=== PATIENT | female | born 1950 | race Caucasian/White ===

== ENCOUNTER 2019-03-23 10:09 | Outpatient (CLI) | payer MEDICARE, SELFPAY ==
[2019-03-23 12:12] LABS: Albumin Level 4.3 g/dL (3.5-5.1); Estimated Glomerular Filt Rate > 60; Glucose 104 mg/dL (65-105)
[2019-03-23 12:13] LABS: Urine Cotinine NEGATIVE
[2019-03-23 12:18] LABS: Basophils Absolute Auto 0.1 K/mm3 (0.0-0.1); Basophils Percent Auto 1.3 % (0.2-1.2); Eosinophils Absolute Auto 0.2 K/mm3 (0-0.3); Eosinophils Percent Auto 2.4 % (0-4.4); Hematocrit 41.9 % (37.0-47.0); Hemoglobin 13.4 g/dL (12.0-15.0); Immature Granulocyte Absolute 0.03 K/mm3 (0.00-0.031); Immature Granulocyte Percent A 0.4 % (0-0.5); Lymphocytes Percent Auto 39.8 % (18.3-44.2); Mean Corpuscular Hemoglobin 28.6 pg (26-34); Mean Corpuscular Volume 89.5 fl (80-100); Mean Platelet Volume 9.7 fl (7.4-10.4); Monocytes Absolute Auto 0.5 K/mm3 (0.1-0.6); Monocytes Percent Auto 6.2 % (2.6-8.5); Neutrophils Absolute Auto 3.9 K/mm3 (1.3-6.7); Neutrophils Percent Auto 49.9 % (45.5-73.1); Platelet Count Result 313 k/mm3 (150-375); Red Blood Count 4.68 M/mm3 (4.2-5.4); Red Cell Distribution Width 13.1 % (11.5-14.5); White Blood Count 7.8 K/mm3 (4.5-10.0)
[2019-03-23 12:26] LABS: Hemoglobin A1C 5.9 % (<5.7)
== END 2019-03-23 10:10 | disposition home or self-care (01) ==
PROVIDERS: PCP Nurse Practitioner Family; Visit Provider Orthopaedic Surgery
DX: M17.12 Unilateral primary osteoarthritis, left knee (principal)
CPT/HCPCS: 36415; 80307; 82040; 82565; 82947; 83036; 85025; 86850; 86900; 86901; 87081

== ENCOUNTER 2019-07-31 07:49 | Outpatient (CLI) | payer MEDICARE, SELFPAY ==
[2019-07-31 09:17] LABS: Basophils Absolute Auto 0.1 K/mm3 (0.0-0.1); Eosinophils Absolute Auto 0.2 K/mm3 (0-0.3); Eosinophils Percent Auto 2.8 % (0-4.4); Hematocrit 41.9 % (37.0-47.0); Hemoglobin 13.8 g/dL (12.0-15.0); Immature Granulocyte Absolute 0.04 K/mm3 (0.00-0.031); Immature Granulocyte Percent A 0.5 % (0-0.5); Lymphocytes Absolute Auto 3.34 K/mm3 (0.9-3.2); Lymphocytes Percent Auto 41.3 % (18.3-44.2); Mean Corpuscular HGB Conc 32.9 g/dl (32-36); Mean Corpuscular Hemoglobin 28.8 pg (26-34); Mean Corpuscular Volume 87.5 fl (80-100); Mean Platelet Volume 9.4 fl (7.4-10.4); Monocytes Absolute Auto 0.5 K/mm3 (0.1-0.6); Monocytes Percent Auto 6.1 % (2.6-8.5); Neutrophils Absolute Auto 3.9 K/mm3 (1.3-6.7); Neutrophils Percent Auto 48.3 % (45.5-73.1); Platelet Count Result 283 k/mm3 (150-375); Red Blood Count 4.79 M/mm3 (4.2-5.4); Red Cell Distribution Width 13.2 % (11.5-14.5); White Blood Count 8.1 K/mm3 (4.5-10.0)
[2019-07-31 09:18] LABS: Urine Cotinine NEGATIVE
[2019-07-31 09:20] LABS: Hemoglobin A1C 6.1 % (<5.7)
[2019-07-31 09:24] LABS: Albumin Level 4.2 g/dL (3.5-5.1); Estimated Glomerular Filt Rate > 60; Glucose 112 mg/dL (65-105)
== END 2019-07-31 07:50 | disposition home or self-care (01) ==
PROVIDERS: PCP Nurse Practitioner Family; Visit Provider Orthopaedic Surgery
DX: Z01.818 Encounter for other preprocedural examination (principal); M17.12 Unilateral primary osteoarthritis, left knee
CPT/HCPCS: 36415; 80307; 82040; 82565; 82947; 83036; 85025; 87081

== ENCOUNTER 2019-08-10 00:19 | Outpatient (CLI) | payer MEDICARE, SELFPAY ==
[2019-08-11 00:19] LABS: SARS-CoV-2 RNA PCR Negative
== END 2019-08-10 00:20 | disposition home or self-care (01) ==
LOC: ANHCOVIDDT 00:19
PROVIDERS: Visit Provider Orthopaedic Surgery
DX: Z01.818 Encounter for other preprocedural examination (principal); Z11.59 Encounter for screening for other viral diseases
CPT/HCPCS: 87635; C9803; U0003

== ENCOUNTER 2019-08-13 01:42 | Day surgery (SDC) | payer MEDICARE, MEDICAID, SELFPAY ==
[2019-07-31 08:12] VITALS: BP 136/74; PULSE 74; RESP 20; TEMP 36.6; O2SAT 98; BMI 36.1
[2019-08-13] VITALS (15 sets, daily range): BP systolic 104–143; BP diastolic 54–85; PULSE 66–79; RESP 14–20; TEMP 35.9–37.1; O2SAT 94–98
--- NOTE | ~2019-08-13 | XR_ITS ---
EXAMINATION: XR knee LT 2V DATE: 08/13/2019 14:46 INDICATION: Total left knee arthroplasty. Postop. TECHNIQUE: 2 views of left knee were obtained. COMPARISON: Left knee radiographs 02/22/2019 FINDINGS: There is a total left knee arthroplasty with patellar resurfacing in near-anatomic alignmen t. No fracture. There is gas in the knee joint and soft tissues, consistent with recent surgery. IMPRESSION: 1. Total left knee arthroplasty in near-anatomic alignment. Reviewed, dictated and finalized at location A.
[2019-08-13] MEDS: LACTATED RINGERS 1,000 ML 30 ML IV CONT ×3 (09:20→13:46)
--- NOTE | 2019-08-13 09:24 | WPDANESEPPF ---
Anes - Initial Pre Proc Eval Procedure: Operation Date: 08/13/19 10:30 Proposed Procedures p Left Total Knee Arthroplasty - Bronson Garcia MD Date/Time: 08/13/19 09:24 Surgeon: Bronson Garcia MD Pre Op Diagnosis: Left Knee OA Patient Data Age: 69 Gender: F Height: 5 ft 2 in Weight: 90.1 kg Last Vital Signs Temp 36.6 C 07/31/19 08:12 Pulse 74 07/31/19 08:12 Resp 20 07/31/19 08:12 BP 136/74 07/31/19 08:12 Pulse Ox 98 07/31/19 08:12 Allergies Allergy/AdvReac Type Severity Reaction Status Date / Time sertraline Allergy Severe PARANOID Verified 08/13/19 08:45 Home Medications Medication Instructions Recorded Confirmed Type buspirone 30 mg tablet 30 mg PO BID 02/16/19 08/13/19 History carvedilol 12.5 mg tablet 6.25 mg PO Q12H 02/16/19 08/13/19 History duloxetine 60 mg capsule,delayed 60 mg PO HS 02/16/19 08/13/19 History release lactobacillus combination no.4 3 3,000 mmu cells PO DAILY 02/16/19 08/13/19 History billion cell capsule cholecalciferol (vitamin D3) 25 5,000 unit PO DAILY 02/22/19 08/13/19 History mcg (1,000 unit) capsule multivitamin 1 tablet PO DAILY 02/22/19 08/13/19 History atorvastatin 10 mg tablet 10 mg PO HS 03/20/19 08/13/19 History apixaban 5 mg tablet 5 mg PO BID 03/21/19 08/13/19 History calcium-vitamin D3-vitamin K 1 tablet PO DAILY 03/23/19 08/13/19 History [Viactiv] loratadine [Claritin] 10 mg PO DAILY PRN 03/23/19 08/13/19 History Patient hx anesthesia problems: none Family hx anesthesia problems: none PMFSH Past Medical History Medical History Anxiety Cardiac arrhythmia Depression Herniated disc Surgical History Surgical History Colon polyps polyps removed History of hand surgery finger nerve reattached History of knee replacement 2016 Right side History of prior ablation treatment Family History Family History Grandparent Diabetes mellitus Cerebrovascular accident Sibling Cancer Father Emphysema, unspecified Social History Social History Smoking status: Never smoker Alcohol intake: current Additional living arrangements comments: Daughter-Jennifer Ortega Final PreProcedure Day of Procedure 08/13/19 09:24 Patient weight: obese Heart: regular rate and rhythm Lungs: clear to auscultation Airway: Mallampati scale class II Neurological: alert and oriented Last oral intake: >/= 8 hours ASA classification: III Emergent: no Anesthetic plan: proceed Anesthesia type and monitoring: general LMA and standard monitoring Informed Consent: The patient's anesthetic plan and its attendant risks and benefits were discussed with the patient/family/POA. Questions were solicited and answers provided to the satisfaction of the patient/family/POA.
[2019-08-13] MEDS: TRANEXAMIC ACID 1,000MG/ISO100 1,000 MG/100 ML BAG 200 MG IVPB (09:30)
--- NOTE | 2019-08-13 09:53 | WPDHPUPDATE1 ---
History and Physical Update Update Date/Time: 08/13/19 09:53 History and Physical has been reviewed, including an updated exam of the patient. There are NO changes in the patient's condition. Risks, benefits, and alternatives have been discussed and questions answered. Patient agrees to proceed with procedure.
--- NOTE | 2019-08-13 10:28 | SUR.PREOP ---
[id number] WITH DAUGHTER, RAFI, WITH UPDATE TO OR.
[2019-08-13] MEDS: ceFAZolin 2 GM/D5W 50 ML 2 GM/50 ML BAG IVPB (10:40)
[2019-08-13] MEDS: TRANEXAMIC ACID 1,000 MG/10 ML AMPUL 1000 MG TOPICAL (11:12)
[2019-08-13] MEDS: GENTAMICIN BONE CEMENT REFOBACIN 1 EACH TOPICAL (11:13)
--- NOTE | 2019-08-13 13:00 | PM.PROC ---
Procedure Note - Detailed Date of procedure: 08/13/19 Pre-op diagnosis: Left Knee OA Post-op diagnosis: same Procedure performed: left total knee replacement Description of procedure: The patient was identified and proper site identified. The patient was taken to the operating room and transferred to the OR table positioning supine taking care to pad the torso and extremities. After general anesthetic induction and intubation a nonsterile tourniquet was placed high on the left thigh. The left lower extremity was prepped and draped in the usual sterile fashion. The extremity was exsanguinated and with the knee flexed tourniquet was inflated to 300 mmHg remaining up for approximately 72 minutes. An anterior midline incision was made and a mid vastus approach was used. Infra and suprapatellar fat pads were excised. Patella was resected leaving 15 mm thickness and prepared for the 28 mm round three peg component. Using the intramedullary guide the distal femur was cut in the proper orientation for the size 65 femoral component. Using the extramedullary guide the tibia was cut perpendicular to the long axis protecting collateral ligaments and popliteal structures. It was sized to a 63. Flexion and extension gaps were balanced. Trial reduction was undertaken and the weight-bearing line was noted to passed through the center of the joint. Proximal tibia was drilled and punched in the proper orientation for the real component. Trial components were removed. The bone surfaces were washed with pulsatile lavage and dried. The real components were cemented simultaneously. The knee was held in extension and the patella held clamped until the cement had cured. Excess cement was removed from the joint. After trialing it was determined that the 16 mm insert gave full range of motion from 0-120 degrees of flexion and the patella tracked in the femoral groove with no lift-off. After final lavage the joint the real 16 insert was placed and secured with a locking bar. A Betadine and saline wash was placed into the wound and allowed to sit for approximately 3 minutes and then evacuated. Periarticular tissues were infiltrated with 60 cc of the arthroplasty solution. 1 g of tranexamic acid was left in the wound. The extensor mechanism was repaired with #2 Vicryl suture and 0 looped PDS suture. Subcu was reapproximated with three 0 strata fix and tissue adhesive for the skin. A sterile dressing was applied. [] tolerated the procedure well, was awakened and extubated, transferred to the bed and was taken to recovery area in stable condition. There were no known intraoperative complications. Perioperative antibiotics were administered. Anesthesia: GLMA Surgeon: Bronson Garcia MD Supervisor Felting: Yang Cruz Estimated blood loss (mL): 80 Tourniquet time (min): 72 Drains: No Packing: No Pathology: none sent Complications: No immediate complications Condition: stable Disposition: PACU
--- NOTE | 2019-08-13 15:01 | ADMGEN ---
This patient, Romi Escobedo, was admitted to Medical Room 243-. Patient/family oriented to hospital policies and general routines including ID bracelet, bed and alarms, visiting hours, pain management, procedures, bathroom and other care routines, personal items, smoking policy, room service/diet, and visiting hours. Valuables list has been completed. Information on how to activate the Rapid Response Team has been discussed. Patient/Family are encouraged to report perceived risks to care and to ask questions if they do not understand what they are told or what they should do.
[2019-08-13] MEDS: SODIUM CHLORIDE 0.9% IV 1,000 ML 125 ML IV CONT (15:40)
[2019-08-13] MEDS: oxyCODONE/ACETAMINOPHEN 5-325 MG TABLET 1 TABLET PO ×2 (16:04→20:49)
[2019-08-13] MEDS: DOCUSATE SODIUM 100 MG CAPSULE PO (16:06)
[2019-08-13] MEDS: busPIRone HCL 10 MG TABLET 30 MG PO (16:06)
[2019-08-13] MEDS: ATORVASTATIN 10 MG TABLET PO (20:44)
[2019-08-13] MEDS: APIXABAN 5 MG TABLET PO (20:44)
[2019-08-13] MEDS: carvediloL 6.25 MG TABLET PO (20:45)
[2019-08-13] MEDS: FAMOTIDINE 20 MG TABLET PO (20:47)
[2019-08-13] MEDS: DULoxetine HCL 60 MG CAPSULE.DR PO (20:48)
[2019-08-14 00:25] VITALS: BP 151/45; PULSE 64; RESP 20; TEMP 36.8; O2SAT 93
[2019-08-14] MEDS: oxyCODONE/ACETAMINOPHEN 5-325 MG TABLET 1 TABLET PO ×4 (00:58→13:28)
[2019-08-14 04:25] VITALS: BP 126/49; PULSE 76; RESP 18; TEMP 36.5; O2SAT 96
[2019-08-14 05:57] LABS: Basophils Percent Auto 0.2 % (0.2-1.2); Hematocrit 36.2 % (37.0-47.0); Hemoglobin 11.8 g/dL (12.0-15.0); Immature Granulocyte Percent A 0.8 % (0-0.5); Lymphocytes Absolute Auto 2.11 K/mm3 (0.9-3.2); Lymphocytes Percent Auto 16.8 % (18.3-44.2); Mean Corpuscular HGB Conc 32.6 g/dl (32-36); Mean Corpuscular Hemoglobin 29.2 pg (26-34); Mean Corpuscular Volume 89.6 fl (80-100); Mean Platelet Volume 9.7 fl (7.4-10.4); Monocytes Absolute Auto 0.5 K/mm3 (0.1-0.6); Monocytes Percent Auto 3.9 % (2.6-8.5); Neutrophils Absolute Auto 9.8 K/mm3 (1.3-6.7); Neutrophils Percent Auto 78.3 % (45.5-73.1); Platelet Count Result 275 k/mm3 (150-375); Red Blood Count 4.04 M/mm3 (4.2-5.4); Red Cell Distribution Width 13.6 % (11.5-14.5); White Blood Count 12.5 K/mm3 (4.5-10.0)
[2019-08-14 06:06] LABS: Blood Urea Nitrogen 14 mg/dL (7-17); Calcium 8.6 mg/dL (8.4-10.2); Carbon Dioxide 29 mmol/L (22-30); Chloride 103 mmol/L (98-107); Estimated CRCL calculation 67 ml/min; Estimated Glomerular Filt Rate > 60; Glucose 142 mg/dL (65-105); Potassium 4.1 mmol/L (3.4-5.0); Sodium 137 mmol/L (137-145)
--- NOTE | 2019-08-14 07:17 | PM.PNORT ---
Progress Note: A&P Assessment and Plan (1) Status post total left knee replacement: Code(s): Z96.652 - Presence of left artificial knee joint Status: Acute Assessment and Plan: 69-year-old female who is status post left total knee replacement and doing very well overnight. She is going to be discharged home after her second physical therapy today. I will see the patient in two weeks for wound check of the left knee. Patient instructed to call with any questions prior to follow-up. Subjective Subjective Date/Time Seen: 08/14/19 07:17 Post Op day: 1 Principal diagnosis: Status post left total knee replacement Interval history: 69-year-old female postop day one left total knee replacement and doing very well. Review of Systems Constitutional: Constitutional: Denies chills and Denies fever(s) Eyes: Eyes: Reports no additional eye complaints ENT: Reports system reviewed and no additional complaints, except as documented Cardiovascular: Cardiovascular: Denies chest pain and Denies dyspnea on exertion Respiratory: Respiratory: Reports no additional respiratory complaints and Denies dyspnea on exertion Gastrointestinal: Gastrointestinal: Denies abdominal pain and Denies bloating Exam Const: General: cooperative, no acute distress and alert Nutritional Appearance: other Orientation/consciousness: patient oriented x3 Limitations: no limitations HENMT: Head: normal to inspection Ears: hearing grossly normal bilaterally Face and sinus: face symmetric Mouth: Yes moist mucous membranes Teeth and gingiva: fair dentition Eyes: Alignment and Position: alignment normal and position normal Sclera: sclerae normal Neck: Neck: normal visual inspection and nontender Chest: Chest palpation & inspection: normal inspection of the chest Resp: Effort & Inspection: normal respiratory effort and able to speak in complete sentences GI: Inspection: other (Nontender, nondistended) Skin: General skin exam: normal color Rashes: no rashes Neuro: General: patient oriented x3 Cognition (Neuro): normal cognition Speech: normal speech Gait exam (Neuro): Other gait observations present Motor exam (neuro): 5/5 motor strength present throughout Sensory Exam: normal sensation Extrem: General: normal to inspection and other Other: Exam of the left knee shows a nicely healed incision with wound edges well opposed. Dressing is dry. Neurovascular status unremarkable to the left lower extremity. Calves nontender. Psych: Appearance: grossly normal Mental Status: mental status grossly normal Objective Data Vital Signs Vital Signs: Vital Signs - 24 hr 08/13/19 08:25 08/13/19 13:05 08/13/19 13:20 Temperature 97.3 F L 98.8 F Pulse Rate 71 79 74 Respiratory Rate 20 15 15 Blood Pressure 137/68 104/56 L 115/57 L Pulse Oximetry 97 94 08/13/19 13:35 08/13/19 13:50 08/13/19 14:05 Temperature Pulse Rate 76 71 78 Respiratory Rate 14 15 Blood Pressure 119/85 125/73 129/66 Pulse Oximetry 96 97 95 08/13/19 14:20 08/13/19 14:35 08/13/19 15:00 Temperature 96.7 F L Pulse Rate 70 79 71 Respiratory Rate 16 Blood Pressure 141/70 H 139/72 143/72 H Pulse Oximetry 97 98 97 08/13/19 15:15 08/13/19 15:45 08/13/19 16:45 Temperature 97.1 F L 97.3 F L 97.5 F L Pulse Rate 66 79 69 Respiratory Rate 16 18 18 Blood Pressure 139/70 130/83 123/75 Pulse Oximetry 98 97 96 08/13/19 18:17 08/13/19 20:25 08/13/19 20:45 Temperature 98.4 F Pulse Rate 75 76 Respiratory Rate 18 Blood Pressure 141/54 H Pulse Oximetry 94 98 08/14/19 00:25 Temperature 98.2 F Pulse Rate 64 Respiratory Rate 20 Blood Pressure 151/45 H Pulse Oximetry 93 Intake/Output Intake/Output: Intake & Output 08/11/19 08/12/19 08/13/19 08/14/19 23:59 23:59 23:59 23:59 Intake Total 1835 / 1835 50 / 50 Output Total 250 / 250 Balance 1585 / 1585 50 / 50 Meds/Results Medications: Active Medications Generic Name Dose
--- NOTE | 2019-08-14 07:20 | PM.DS ---
DS: Admitting Diagnosis Admitting Diagnosis Admitting Diagnosis: Unilateral primary osteoarthritis, left knee DS: Discharge Diagnosis Discharge Diagnosis (1) Status post total left knee replacement: Code(s): Z96.652 - Presence of left artificial knee joint Status: Acute DS: Summary Time Spent with Patient Time attestation: Total time spent providing and/or coordinating discharge services: DS: Data Data Completed and Pending Labs on day of discharge: Labs from last 24 hours 08/14/19 08/14/19 08/13/19 05:28 05:28 09:01 WBC 12.5 H RBC 4.04 L Hgb 11.8 L Hct 36.2 L MCV 89.6 MCH 29.2 MCHC 32.6 RDW 13.6 Plt Count 275 MPV 9.7 Immature Gran % (Auto) 0.8 H Neut % (Auto) 78.3 H Lymph % (Auto) 16.8 L Banks % (Auto) 3.9 Eos % (Auto) 0.0 Baso % (Auto) 0.2 Lymph # (Auto) 2.11 Banks # (Auto) 0.5 Eos # (Auto) 0.0 Baso # (Auto) 0.0 Abs Immat Gran (auto) 0.10 H Absolute Neuts (auto) 9.8 H Absolute Nucleated RBC 0.0 Nucleated RBC % 0.0 Sodium 137 Potassium 4.1 Chloride 103 Carbon Dioxide 29 BUN 14 Creatinine 0.70 Estim Creat Clear Calc 67 Estimated GFR > 60 Glucose 142 H Calcium 8.6 Blood Type O Negative Antibody Screen Negative Discharge Plan Discharge Patient Disposition: Home, Self-Care Discharge Instructions: 3 times daily for 20 minutes each time, reclining in bed with ice packs over the incision and a pillow underneath the affected calf; there should be nothing but daylight under the knee. Your wound is glued so it is okay to get into the shower and get the wound wet. Be sure to read through all the information that came from a my office and the hospital. Most of the answer was you will need can be found that material. Call the office with any questions that you cannot find answers to, or concerns you may have. You are on Eliquis and will continue to take your usual dosage twice daily. Please call [facility] at as soon as possible to verified follow-up appointment to be seen in two weeks. Also, call the office with any orthopedic/surgical related questions prior to follow-up. Be sure to get up and move around several times daily but do not overdo it. Patient Instructions: Apixaban (By mouth), Precautions after Total Joint Replacement Surgery (ED) Discharge Medications: New oxycodone-acetaminophen 5-325 mg Tablet 1 tablet PO Q4HR PRN (Reason: pain) Qty: 40 RF: 0 Eliquis 5 mg Tablet 5 mg PO Q12HR Qty: 0 RF: 0 Continued cholecalciferol (vitamin D3) 25 mcg (1,000 unit) capsule 5,000 unit PO DAILY RF: 0 multivitamin Tablet 1 tablet PO DAILY RF: 0 atorvastatin 10 mg tablet 10 mg PO HS RF: 0 Eliquis 5 mg tablet 5 mg PO BID RF: 0 buspirone 30 mg tablet 30 mg PO BID RF: 0 duloxetine [Cymbalta] 60 mg capsule,delayed release(DR/EC) 60 mg PO HS RF: 0 carvedilol [Coreg] 12.5 mg tablet 6.25 mg PO Q12H RF: 0 Probiotic 3 billion cell capsule 3,000 mmu cells PO DAILY RF: 0 loratadine [Claritin] 10 mg Tablet 10 mg PO DAILY PRN (Reason: Nasal Congestion) RF: 0 calcium-vitamin D3-vitamin K [Viactiv] 650 mg-12.5 mcg-40 mcg Tablet,Chewable 1 tablet PO DAILY RF: 0 Quality VTE Prophylaxis VTE prophylaxis: mechanical ordered and pharmacologic ordered
--- NOTE | 2019-08-14 07:21 | P.PNAN_ITS ---
Anes - Prog Note Post-Op Date/Time: 08/14/19 07:21 Cardiovascular status: normal Respiratory status: normal Airway patency: baseline Mental status: baseline Post-Op hydration status: normal Vital Signs: Last Vital Signs Temp 36.8 C 08/14/19 00:25 Pulse 64 08/14/19 00:25 Resp 20 08/14/19 00:25 BP 151/45 H 08/14/19 00:25 Pulse Ox 93 08/14/19 00:25 I/O: Intake & Output 08/13/19 08/13/19 08/14/19 15:59 23:59 07:59 Intake Total 700 1135 50 Output Total 250 Balance 700 885 50 Laboratory Tests 08/14/19 05:28 08/14/19 05:28 08/13/19 08/14/19 08/14/19 09:01 05:28 05:28 WBC 12.5 H RBC 4.04 L Hgb 11.8 L Hct 36.2 L MCV 89.6 MCH 29.2 MCHC 32.6 RDW 13.6 Plt Count 275 MPV 9.7 Immature Gran % (Auto) 0.8 H Neut % (Auto) 78.3 H Lymph % (Auto) 16.8 L Kemper % (Auto) 3.9 Eos % (Auto) 0.0 Baso % (Auto) 0.2 Lymph # (Auto) 2.11 Kemper # (Auto) 0.5 Eos # (Auto) 0.0 Baso # (Auto) 0.0 Abs Immat Gran (auto) 0.10 H Absolute Neuts (auto) 9.8 H Absolute Nucleated RBC 0.0 Nucleated RBC % 0.0 Sodium 137 Potassium 4.1 Chloride 103 Carbon Dioxide 29 BUN 14 Creatinine 0.70 Estim Creat Clear Calc 67 Estimated GFR > 60 Glucose 142 H Calcium 8.6 Blood Type O Negative Antibody Screen Negative Post-procedural complaints: none Patient Feedback: Patient satisfied with anesthetic care.
[2019-08-14] MEDS: busPIRone HCL 10 MG TABLET 30 MG PO (09:19)
[2019-08-14] MEDS: CHOLECALCIFEROL 1,000 UNIT TABLET 5000 UNITS PO (09:19)
[2019-08-14 09:20] VITALS: PULSE 80
[2019-08-14] MEDS: carvediloL 6.25 MG TABLET PO (09:20)
[2019-08-14] MEDS: DOCUSATE SODIUM 100 MG CAPSULE PO (09:20)
[2019-08-14] MEDS: FAMOTIDINE 20 MG TABLET PO (09:20)
[2019-08-14] MEDS: MULTIVITAMINS THERAPEUTIC TAB (*BKC) 1 TABLET PO (09:20)
[2019-08-14] MEDS: polyethylene glycoL 3350 17 GM POWD.PACK PO (09:20)
[2019-08-14] MEDS: APIXABAN 5 MG TABLET PO (09:20)
[2019-08-14 09:40] VITALS: BP 126/58; PULSE 74; RESP 16; TEMP 36.6; O2SAT 97
[2019-08-14 09:51] VITALS: BMI 36.5
--- NOTE | 2019-08-14 12:56 | PC.NURSE ---
Spoke with hospitalist GISELA Nguyen in regards to discharge. Per Michelet, she does not need to see patient prior to discharge. Okay to discharge patient.
[2019-08-14 13:33] VITALS: BP 127/59; PULSE 74; RESP 18; TEMP 36.4; O2SAT 97
--- NOTE | 2019-08-14 14:15 | PCCCNOTE ---
On 08/14/19, the student, Jeni Alvarenga, provided care and completed [facility] documentation on this patient. I have reviewed the student's documentation and agree with the findings.
== END 2019-08-14 14:37 | disposition home or self-care (01) ==
LOC: ANHSURGERY 13:07 → ANH2MED 14:43
PROVIDERS: PCP Nurse Practitioner Family; Visit Provider Orthopaedic Surgery
PROC: (CPT 27447; principal; 2019-08-13 10:30)
DX: M17.12 Unilateral primary osteoarthritis, left knee (principal); I49.9 Cardiac arrhythmia, unspecified; F41.8 Other specified anxiety disorders; Z79.01 Long term (current) use of anticoagulants; E66.9 Obesity, unspecified; Z68.36 Body mass index [BMI] 36.0-36.9, adult
CPT/HCPCS: 27447; 36415; 73560; 80048; 85025; 86850; 86900; 86901; 97110; 97116; 97161; 97165; A9270; C1713; C1776; J0131; J0171; J0330; J0690; J1100; J1885; J2250; J2270; J2370; J2405; J2704; J2795; J3010; J3370; J7030; J7120

== ENCOUNTER 2022-11-11 13:22 | Emergency (ER) | payer MEDICARE, SELFPAY ==
--- NOTE | ~2022-11-11 | XR_ITS ---
XR knee RT min 4V DATE: 11/11/2022 13:58 INDICATION: Medial knee pain, lateral hematoma. TECHNIQUE: 4 views including crosstable lateral COMPARISON: 10/18/2017 right knee FINDINGS: Status post right total knee arthroplasty with patellar resurfacing. No fracture or dislocation or joint effusion, periosteal reaction or bone destruction is detected. IMPRESSION: Status post right total knee arthroplasty Reviewed, dictated and finalized at location L.
[2022-11-11 13:35] VITALS: BP 143/110; PULSE 78; RESP 16; TEMP 36.5; O2SAT 97
--- NOTE | 2022-11-11 17:12 | ED.EXTPRO ---
HPI - Extremity Problem General Chief complaint: Extremity Problem,Nontraumatic Stated complaint: right knee swelling and pain Time Seen by Provider: 11/11/22 15:32 History of Present Illness HPI Narrative: 72-year-old female with a history of right knee arthroplasty many years ago who follows with Dr. Garcia reports for evaluation for right knee pain. Patient states a few weeks ago, she was evaluated emergency department for right foot pain, had x-rays done at that time which were negative and pain eventually resolved. States 5 days ago, she developed edema and pain to her right knee which has since improved. She plan to follow-up with her PCP regarding her pain. She thought she had an appoint with her PCP today and went to the office, however was told her appointment is not until next week. She called Dr. Garcia's office and was advised to come to the ED for evaluation of her knee pain. Therefore, she came to the ED for evaluation of her right knee today. She reports significant improvement in the pain and swelling. She denies difficulty with ambulation or range of motion, erythema or warmth, fever or vomiting. Denies recent injury or trauma. Denies lower extremity edema, calf pain. She is currently anticoagulated with Eliquis. Related Data Home Medications Medication Instructions Recorded Confirmed duloxetine 60 mg capsule,delayed 60 mg PO HS 02/16/19 07/29/22 release (Cymbalta) lactobacillus combination no.4 3 3,000 mmu cells PO DAILY 02/16/19 07/29/22 billion cell capsule (Probiotic) cholecalciferol (vitamin D3) 25 5,000 unit PO DAILY 02/22/19 07/29/22 mcg (1,000 unit) capsule atorvastatin 10 mg tablet 10 mg PO HS 03/20/19 07/29/22 apixaban 5 mg tablet (Eliquis) 5 mg PO BID 03/21/19 07/29/22 calcium 650 mg-vitamin D3 12.5 1 tablet PO DAILY 03/23/19 07/29/22 mcg-vitamin K 40 mcg chewable tablet (Viactiv) loratadine 10 mg tablet (Claritin) 10 mg PO DAILY PRN Nasal Congestion 03/23/19 07/29/22 gabapentin 300 mg capsule 300 mg PO 08/26/20 07/29/22 carvedilol 12.5 mg tablet (Coreg) 3.25 mg PO Q12H 04/07/22 07/29/22 omega 2-ycl-ouv-fish oil 60 mg-90 1 cap PO DAILY 04/07/22 07/29/22 mg-500 mg capsule (Fish Oil) pyridoxine (vitamin B6) 100 mg 50 mg PO DAILY 04/07/22 07/29/22 tablet buspirone 30 mg tablet 20 mg PO BID 07/29/22 07/29/22 Allergies Allergy/AdvReac Type Severity Reaction Status Date / Time sertraline Allergy Severe PARANOID Verified 11/11/22 13:22 Review of Systems Review of Systems: CONSTITUTIONAL: Denies fever, chills EYES: Denies visual changes, redness, or discharge. ENT: Denies rhinorrhea, congestion, sore throat, or otalgia. CARDIOVASCULAR: Denies chest pain, palpitations, or edema. RESPIRATORY: Denies cough or dyspnea. GASTROINTESTINAL: Denies abdominal pain, nausea, vomiting, or diarrhea. GENITOURINARY: Denies dysuria or hematuria. SKIN: Denies rash or itching. MUSCULOSKELETAL: See HPI NEUROLOGIC: Denies headache, numbness, dizziness, or weakness. PSYCHIATRIC: Denies anxiety or depression. [facility] Past Medical History Medical History Anxiety BMI 34.0-34.9,adult Cardiac arrhythmia Depression Herniated disc Surgical History Surgical History Colon polyps polyps removed History of bilateral knee replacement Right 2016 2019 History of hand surgery finger nerve reattached History of prior ablation treatment Family History Family History Grandparent Diabetes mellitus Cerebrovascular accident Sibling Cancer Father Emphysema, unspecified Social History Social History Smoking status: Never smoker Alcohol intake: never Alcohol use details: occasional Substance use: never Lack of Transportation: No Lack of Food: Never True
[2022-11-11 17:30] VITALS: BP 170/80; PULSE 69; RESP 16; O2SAT 100
== END 2022-11-11 17:35 | disposition home or self-care (01) ==
PROVIDERS: Emergency Provider Physician Assistant; PCP Nurse Practitioner Family
DX: M25.561 Pain in right knee (principal); F41.9 Anxiety disorder, unspecified; F32.A Depression, unspecified; Z96.653 Presence of artificial knee joint, bilateral; Z86.010 Personal history of colon polyps; Z79.01 Long term (current) use of anticoagulants
CPT/HCPCS: 73564; 99283

== ENCOUNTER 2023-06-07 14:31 | Outpatient (CLI) | payer MEDICARE, SELFPAY ==
--- NOTE | ~2023-06-07 | XR_ITS ---
XR pelvis min 3V 06/07/2023 14:59 Indication: Pelvic and perineal pain Procedure: 3 views of the pelvis Comparison: No prior studies for comparison. Findings: Pelvic rings are intact. Sacral foramen are symmetric. Mild lower lumbar spondylosis. No ac rubio fracture or traumatic malalignment. Mild osteitis pubis. Impression: 1: No acute abnormality of the pelvis. Reviewed, dictated and finalized at location B. Impression: 1: No acute abnormality of the pelvis.
== END 2023-06-07 14:32 | disposition home or self-care (01) ==
LOC: ANHIMG 14:34
PROVIDERS: PCP Nurse Practitioner Family; Visit Provider Physical Medicine & Rehabilitation Pain Medicine
DX: R10.2 Pelvic and perineal pain (principal)
CPT/HCPCS: 72190

== ENCOUNTER 2023-12-02 09:50 | Outpatient (CLI) | payer MEDICARE, SELFPAY ==
[2023-12-02 10:28] LABS: CRP 1.5 mg/dL (<1.0)
[2023-12-02 10:39] LABS: Erythrocyte Sedimentation Rate 36 mm/hr (0-20)
[2023-12-02 11:47] LABS: Appearance Synovial Fluid Bloody (Clear); Color Synovial Fluid Red (Colorless); Nucleated Cell Synovial Fluid 4694 /uL (0-200); Source Synovial Fluid Rt Knee Syn Fluid
[2023-12-02 11:48] LABS: Lymphocytes Synovial Fluid 32 %; Macrophages Synovial Fluid 1 %; Neutrophils Synovial Fluid 67 % (0-25); RBC Synovial Fluid 4397000 /uL (0-0)
== END 2023-12-02 09:51 | disposition home or self-care (01) ==
PROVIDERS: PCP Nurse Practitioner Family; Visit Provider Physician Assistant Surgical
DX: M25.561 Pain in right knee (principal); Z96.651 Presence of right artificial knee joint
CPT/HCPCS: 36415; 85652; 86140; 87070; 87075; 87205; 89051